=== PATIENT | female | born 1990 | race African-American/Black ===

== ENCOUNTER 2024-03-04 14:05 | Emergency (ER) | payer OTHER ==
[2024-03-04 14:20] VITALS: BP 121/76; PULSE 62; RESP 18; TEMP 98.3; BMI 42.4
[2024-03-04] MEDS ORDERED: IBUPROFEN 600 MG TABLET (FP) PO ONE (15:20)
[2024-03-04] MEDS ORDERED: AMOXICILLIN 250 MG CAPSULE ONE (15:20)
[2024-03-04] MEDS: IBUPROFEN 600 MG TABLET (FP) PO ONE (15:24)
[2024-03-04] MEDS: AMOXICILLIN 500 MG CAPSULE (FP) PO ONE (15:25)
== END 2024-03-04 15:26 | disposition home or self-care (01) ==
LOC: JERFT 14:05
DX: R68.84 Jaw pain (principal); K08.89 Other specified disorders of teeth and supporting structures
CPT/HCPCS: 99283-25